=== PATIENT | male | born 1965 | race Hispanic/Latino ===

== ENCOUNTER 2018-09-06 00:50 | Emergency (ER) | payer OTHER ==
[2018-09-06 02:45] LABS: Basophils % (Auto) 0.4 % (0.0-1.8); Eosinophils # (Auto) 0.3 K/mm3 (0.0-0.4); Eosinophils % (Auto) 2.6 % (0.0-4.3); Hemoglobin 14.4 gm/dl (11.8-15.2); Lymphocytes # (Auto) 1.9 K/mm3 (1.2-5.4); Lymphocytes % (Auto) 19.5 % (13.4-35.0); Mean Corpuscular HGB Conc 34 % (32-34); Mean Corpuscular Volume 89 fl (84-94); Monocytes # (Auto) 0.8 K/mm3 (0.0-0.8); Platelet Count 255 K/mm3 (140-440); Red Blood Count 4.74 M/mm3 (3.65-5.03); Red Cell Distribution Width 15.9 % (13.2-15.2)
[2018-09-06 03:15] LABS: Alanine Aminotransferase 14 units/L (7-56); Albumin 4.1 g/dL (3.9-5); BUN/Creatinine Ratio 9; Blood Urea Nitrogen 8 mg/dL (9-20); Hemolysis Index 23
[2018-09-06 04:33] LABS: Amorphous Crystals,Urine Few; Bacteria,Urine 1+ /HPF (Negative); Bilirubin,Urine NEG (Negative); Blood,Urine NEG (Negative); Color,Urine Yellow (Yellow); Mucus,Urine FEW /HPF; Protein,Urine <15 mg/dL mg/dL (Negative); Urobilinogen,Urine < 2.0 mg/dL (<2.0)
--- NOTE | 2018-09-06 07:24 | Emergency Department Report ---
ED Abdominal Pain HPI - General Chief Complaint: Abdominal Pain Stated Complaint: ABD PAIN/VILLA/CHILLS Time Seen by Provider: 09/06/18 07:23 Source: patient Mode of arrival: Ambulatory Limitations: No Limitations - History of Present Illness Initial Comments: This is a 53-year-old male he reported that he is having mid abdominal pain and passing a lot of gas. He said he had not had a bowel movement since and usually goes every day. Patient reports headache, fever, chills 24 hours. Denies any nausea or vomiting. Denies any back pain. Denies any urinary burning, frequency or urgency. Abdominal pain is. 10 and crampy. It comes and goes and has not taken any medication and he reports that he feels he is constipated. MD Complaint: abdominal pain, other (constipation) Onset/Timin -: days(s) Location: periumbilical Radiation: none Migration to: no migration Severity scale (0 -10): 3 Quality: cramping Consistency: intermittent Improves With: nothing Worsens With: nothing Associated Symptoms: constipation. denies: nausea, vomiting, diarrhea, fever, chills, dysuria, hematemesis, hematochezia, melena, hematuria, anorexia, syncope - Related Data Previous Rx's Medication Instructions Recorded Last Taken Type Dicyclomine [Bentyl] 40 mg PO Q8H 3 Days #9 tablet 09/06/18 Unknown Rx Docusate Sodium [Colace] 100 mg PO BID PRN 30 Days #60 09/06/18 Unknown Rx capsule Magnesium Citrate [Citrate of 300 ml PO ONCE 1 Days #1 bottle 09/06/18 Unknown Rx Magnesia] Polyethylene Glycol 3350 [Miralax] 17 gm PO DAILY 5 Days #5 packet 09/06/18 Unknown Rx Allergies Allergy/AdvReac Type Severity Reaction Status Date / Time aspirin Allergy Unknown Verified 09/06/18 00:53 Penicillins Allergy Unknown Verified 09/06/18 00:53 ED Review of Systems ROS: Stated complaint: ABD PAIN/VILLA/CHILLS Other details as noted in HPI Constitutional: chills. denies: fever Respiratory: denies: cough, shortness of breath, wheezing Cardiovascular: denies: chest pain, palpitations, edema, syncope Gastrointestinal: abdominal pain, constipation. denies: nausea, vomiting, diarrhea, hematemesis, melena, hematochezia Genitourinary: denies: urgency, dysuria, frequency, hematuria, discharge, testicular pain, testicular mass Musculoskeletal: denies: back pain, joint swelling, arthralgia Skin: denies: rash Neurological: headache ED Past Medical Hx - Past Medical History Previous Medical History?: Yes Hx Hypertension: Yes Additional medical history: Obesity, - Surgical History Past Surgical History?: Yes Hx Appendectomy: Yes Additional Surgical History: Nasal polyps, Back fusion - Family History Family history: hypertension - Social History Smoking Status: Never Smoker Substance Use Type: None - Medications Home Medications: Home Medications Medication Instructions Recorded Confirmed Last Taken Type Dicyclomine [Bentyl] 40 mg PO Q8H 3 Days #9 tablet 09/06/18 Unknown Rx Docusate Sodium [Colace] 100 mg PO BID PRN 30 Days #60 09/06/18 Unknown Rx capsule Magnesium Citrate [Citrate of 300 ml PO ONCE 1 Days #1 bottle 09/06/18 Unknown Rx Magnesia] Polyethylene Glycol 3350 [Miralax] 17 gm PO DAILY 5 Days #5 packet 09/06/18 Un known Rx ED Physical Exam - General Limitations: No Limitations General appearance: alert, in no apparent distress - Head Head exam: Present: atraumatic, normocephalic, normal inspection - Eye Eye exam: Present: normal appearance, PERRL, EOMI Pupils: Present: normal accommodation - ENT ENT exam: Present: normal exam, normal orophraynx, mucous membranes moist, TM's normal bilaterally - Neck Neck exam: Present: normal inspection, full ROM. Absent: tenderness, lymphadenopathy - Respiratory Respiratory exam: Present: normal lung sounds bilaterally. Absent: respiratory distress, chest wall tenderness - Cardiovascular Cardiovascular Exam: Present: normal rhythm, tachycardia, normal heart sounds. Absent: systolic murmur, diastolic murmur - GI/Abdominal GI/Abdominal exam: Present: soft, distended (mild), normal bowel sounds. Absent: tenderness, guarding, rebound, rigid, organomegaly, mass, bruit, pu lsatile mass - Extremities Exam Extremities exam: Present: normal inspection, full ROM, normal capillary refill, other (No cce. + 2 pulses in all extremities, no neurovascular compromise). Absent: tenderness, pedal edema, joint swelling, calf tenderness - Back Exam Back exam: Present: normal inspection, full ROM, other (ambulates without any difficulties). Absent: tenderness, CVA tenderness (R), CVA tenderness (L) - Neurological Exam Neurological exam: Present: alert, oriented X3, normal gait - Psychiatric Psychiatric exam: Present: normal affect, normal mood - Skin Skin exam: Present: warm, dry, intact, normal color. Absent: rash ED Course Vital Signs 09/06/18 09/06/18 01:11 01:58 Temperature 97.8 F 97.8 F Pulse Rate 101 H 98 H Respiratory 20 16 Rate Blood Pressure 150/81 150/81 O2 Sat by Pulse 94 96 Oximetry - Reevaluation(s) Reevaluation #1: 09/06/18 10:00 Patient remained stable throughout ED course. ED Medical Decision Making - Lab Data Result diagrams: 09/06/18 02:15 09/06/18 02:15 Lab Results 09/06/18 09/06/18 09/06/18 Range/Units 02:15 02:15 Unknown WBC 9.9 (4.5-11.0) K/mm3 RBC 4.74 (3.65-5.03) M/mm3 Hgb 14.4 (11.8-15.2) gm/dl Hct 42.0 (35.5-45.6) % MCV 89 (84-94) fl MCH 30 (28-32) pg MCHC 34 (32-34) % RDW 15.9 H (13.2-15.2) % Plt Count 255 (140-440) K/mm3 Lymph % (Auto) 19.5 (13.4-35.0) % [place] % (Auto) 8.0 H (0.0-7.3) % Eos % (Auto) 2.6 (0.0-4.3) % Baso % (Auto) 0.4 (0.0-1.8) % Lymph # 1.9 (1.2-5.4) K/mm3 [place] # 0.8 (0.0-0.8) K/mm3 Eos # 0.3 (0.0-0.4) K/mm3 Baso # 0.0 (0.0-0.1) K/mm3 Seg Neutrophils % 69.5 (40.0-70.0) % Seg Neutrophils # 6.9 (1.8-7.7) K/mm3 Sodium 139 (137-145) mmol/L Potassium 4.2 (3.6-5.0) mmol/L Chloride 95.8 L (98-107) mmol/L Carbon Dioxide 32 H (22-30) mmol/L Anion Gap 15 mmol/L BUN 8 L (9-20) mg/dL Creatinine 0.9 (0.8-1.5) mg/dL Estimated GFR > 60 ml/min BUN/Creatinine Ratio 9 % Glucose 117 H (75-100) mg/dL Calcium 12.0 H (8.4-10.2) mg/dL Total Bilirubin 0.70 (0.1-1.2) mg/dL AST 12 (5-40) units/L ALT 14 (7-56) units/L Alkaline Phosphatase 74 (35-129) units/L Total Protein 8.4 H (6.3-8.2) g/dL Albumin 4.1 (3.9-5) g/dL Albumin/Globulin Ratio 1.0 % Urine Color Yellow (Yellow) Urine Turbidity Hazy (Clear) Urine pH 7.0 (5.0-7.0) Ur Specific [place] 1.011 (1.003-1.030) Urine Protein <15 mg/dl (Negative) mg/dL Urine Glucose (UA) Neg (Negative) mg/dL Urine Ketones Neg (Negative) mg/dL Urine Blood Neg (Negative) Urine Nitrite Neg (Negative) Urine Bilirubin Neg (Negative) Urine Urobilinogen < 2.0 (<2.0) mg/dL Ur Leukocyte Esterase Neg (Negative) Urine WBC (Auto) 4.0 (0.0-6.0) /HPF Urine RBC (Auto) 2.0 (0.0-6.0) /HPF U Epithel Cells (Auto) < 1.0 (0-13.0) /HPF Urine Bacteria (Auto) 1+ (Negative) /HPF Amorphous Crystals Few Urine Mucus Few /HPF Urine culture sent - Radiology Data Radiology results: report reviewed Abdominal x-ray 2 views dictated by radiologist report reviewed by myself. Please see details below Findings [facility] [address] [place] [address] XRay Report Signed Patient: LUCAS JACKSON MR#: [id number] 56 : 1965 Acct:[id number] Age/Sex: 53 / M ADM Date: 09/06/18 Loc: ED Attending Dr: Ordering Physician: JOÃO MALCOLM Date of Service: 09/06/18 Procedure(s): XR abdomen 2V Accession Number(s): [id number] cc: JOÃO MALCOLM Fluoro Time In Minutes: EXAM: XR ABDOMEN 2V HISTORY: constipation TECHNIQUE: Supine views (4 images). COMPARISON: None available. FINDINGS: Abundant fecal material is seen within the large bowel loops in keeping with constipation. There are up to 2.3 cm distended air-filled small bowel loops within the left abdomen which may represent mild ileus or obstipation; cannot rule out gastroenteritis in the appropriate clinical setting. The bowel gas pattern is otherwise nonspecific. No gross organomegaly, free intraperitoneal air, or suspicious calcifications seen. IMPRESSION: 1. Abundant fecal material is seen within the large bowel loops in keeping with constipation. 2. Up to 2.3 cm distended air-filled small bowel loops within the left abdomen which may represent mild ileus or obstipation; cannot rule out gastroenteritis in the appropriate clinical setting. This document is electronically signed by Lacy Martinez MD., September 06 2018 08:39:01 AM ET Transcribed By: [facility] Dictated By: LACY MARTINEZ Electronically Authenticated By: LACY MARTINEZ Signed Date/Time: 09/06/18 0841 DD/ 5 TD/TT: 09/06/18826 - Medical Decision Making This is a 53-year-old male who is here for 2 days of having no bowel movement and complains of abdominal cramping because he said he usually goes every day. He reports that he was having headache and chills but his vital signs are stable except his heart rate was elevated initially but now it is below 100. Abdominal exam is nontender to palpate. CBC and CMP is stable except for minor abnormalities and urinalysis is stable except for 1+ bacteria and urine culture was sent. 2 views abdominal x-rays reveal1. Abundant fecal material is seen within the large bowel loops in keeping with constipation. 2. Up to 2.3 cm distended air-filled small bowel loops within the left abdomen which may represent mild ileus or obstipation; cannot rule out gastroenteritis in the appropriate clinical setting. I spoke to Dr. Boyce regarding in patient presentation, physical findings and x-ray findings and he is okay with the patient being discharged home with medication for constipation and stool softener. I discussed x-ray with patient along with diagnosis and treatment plan and he voiced understanding. Patient discharged home in stable condition, he is not having any pain and his vital signs are stable, afebrile. - Differential Diagnosis colitis, UTI, bowel obstruction, constipation, enteritis Critical care attestation.: If time is entered above; I have spent that time in minutes in the direct care of this critically ill patient, excluding procedure time. ED Disposition Clinical Impression: Asymptomatic bacteriuria Constipation Qualifiers: Constipation type: other constipation type Qualified Code(s): K59.09 - Other constipation Disposition: DC- TO HOME OR SELFCARE Is pt being admited?: No Does the pt Need Aspirin: No Condition: Stable Instructions: Constipation (ED), Obstipation (ED), High Fiber Diet (ED) Additional Instructions: Please increase her fluid intake to at least 2 L of water daily. Take magnesium citrate 1 today and start taking an MiraLAX 1 packet once daily to clean colon out and after 4 days you can start taking stool softener daily to keep your stool soft. Please see discharge instruction and high-fiber diet Follow-up with assistant accounting manager a primary care doctor in 2-3 days and if his symptoms worsen return to the emergency room Referrals: [facility] [Provider Group] - 2-3 Days TOLEDO MARIO MORENO MD [Primary Care Provider] - 09/08/18 Forms: Work/School Release Form(ED)
--- NOTE | 2018-09-06 08:41 | XRay Report ---
EXAM: XR ABDOMEN 2V HISTORY: constipation TECHNIQUE: Supine views (4 images). COMPARISON: None available. FINDINGS: Abundant fecal material is seen within the large bowel loops in keeping with constipation. There are up to 2.3 cm distended air-filled small bowel loops within the left abdomen which may represent mild ileus or obstipation; cannot rule out gastroenteritis in the appropriate clinical setting. The bowel gas pattern is otherwise nonspecific. No gross organomegaly, free intraperitoneal air, or suspicious calcifications seen. IMPRESSION: 1. Abundant fecal material is seen within the large bowel loops in keeping with constipation. 2. Up to 2.3 cm distended air-filled small bowel loops within the left abdomen which may represent m ild ileus or obstipation; cannot rule out gastroenteritis in the appropriate clinical setting. This document is electronically signed by Georgina Jay MD., September 06 2018 08:39:01 AM ET
[2018-09-06 10:33] VITALS: BP 145/83
== END 2018-09-06 10:34 | disposition home or self-care (01) ==
LOC: ED 00:50
DX: R82.71 Bacteriuria (principal); K59.00 Constipation, unspecified; I10 Essential (primary) hypertension; Z88.6 Allergy status to analgesic agent; Z88.0 Allergy status to penicillin
CPT/HCPCS: 36415; 74019; 80053; 81001; 85025; 87086